=== PATIENT | female | born 1960 | race African-American/Black ===

== ENCOUNTER 2024-02-11 14:41 | Emergency (ER) | payer BC ==
[2024-02-11 15:19] VITALS: BP 113/76; PULSE 90; RESP 18; TEMP 98; BMI 36.2
[2024-02-11] MEDS ORDERED: IBUPROFEN 400 MG TABLET (FP) PO ONE (15:34)
[2024-02-11] MEDS: IBUPROFEN 400 MG TABLET (FP) PO ONE (15:44)
== END 2024-02-11 16:02 | disposition home or self-care (01) ==
LOC: FER 14:41
DX: H92.02 Otalgia, left ear (principal)
CPT/HCPCS: 99283-25